=== PATIENT | male | born 1950 | race Caucasian/White ===

== ENCOUNTER 2018-03-29 19:52 | Emergency (ER) | payer MEDICARE ==
[2018-03-29] MEDS ORDERED: cefTRIAXone 1 GM Vial IM ONE (21:01)
[2018-03-29] MEDS ORDERED: cefTRIAXone 1 GM in Sodium Chloride 0.9% 50 ML IV ONE (21:05)
[2018-03-29] MEDS ORDERED: Sodium Chloride 0.9% 1,000 ML IV ONE (21:11)
[2018-03-29] MEDS ORDERED: Acetaminophen 500 MG Tab PO ONE (21:32)
--- NOTE | 2018-03-31 08:16 | CR ---
DATE OF SERVICE: 03/29/18 CLINICAL DATA: temp AP AND LATERAL CHEST: No priors. The patient has taken a very poor inspiration. The heart size is at the upper limits of normal. It is most likely accentuated by the projection and poor inspiration. There is calcification of the aortic arch. The pulmonary vasculature appears mildly prominent. It is probably accentuated by the poor inspiration. The lungs appear clear. No pneumothorax. No pleural effusions. No areas of consolidation. There is degenerative disc disease throughout the thoracic spine. [id number] [facility]
== END 2018-03-29 23:30 ==
LOC: LB.ED 19:52
DX: N39.0 Urinary tract infection, site not specified (principal); R41.82 Altered mental status, unspecified; E66.9 Obesity, unspecified
CPT/HCPCS: 36415; 71046; 80053; 81001; 83605; 84145; 85025; 87040; 87086; 87088; 87186; 93005; 96361; 96374; 99285-25; A9270-GY; J0696; J3370; J7040; J7050; J7060

== ENCOUNTER 2019-07-11 00:39 | Emergency (ER) | payer MEDICARE ==
[2019-07-11] MEDS ORDERED: Ciprofloxacin 500 MG Tab ONE (02:45)
--- NOTE | 2019-07-11 09:01 | ER ---
HISTORY OF PRESENT ILLNESS: A 68-year-old male who came to our emergency room by ambulance with complaints of just not feeling well. The patient states he did fall once this evening. He was evaluated earlier this evening in [facility]'s ER room and told he was fine and discharged home. An EKG had been done at that facility. No lab work was done. The patient is camping at a local campground. He states that he went back to the camper and ended up falling 1 time due to weakness. The patient states that he does not feel well, but he denies having any pain. The patient denies any chest pain or shortness of breath. He does not feel nauseated, and again he states he just does not feel well, but he cannot tell me how in any further detail. OBJECTIVE: GENERAL APPEARANCE: The patient is awake and alert. He is lying quietly on the table. VITAL SIGNS: Reviewed. Temperature is 100.4, pulse is 94, blood pressure is 164/84, and O2 sats are 97%. HEENT: Ears, TMs are dull, otherwise normal. Nares are patent. Oral mucous membranes are slightly dry. Tonsils are not enlarged or injected. Pharynx not inflamed. NECK: Supple. LUNGS: Clear. CARDIAC: Heart sounds distinct with a slight systolic murmur noted. ABDOMEN: Soft. SKIN: Warm and dry. LAB AND X-RAY: CBC shows a slightly elevated white count of 13,200, hemoglobin is 12.3. Comprehensive metabolic panel is unremarkable. UA does show urinary tract infection. ETOH is negative. DIAGNOSIS: Urinary tract infection. TREATMENT PLAN: The patient is taking Bactrim once a day I understand for a heart valve replacement that was done last spring. At this point, we will start the patient on Cipro 500 mg b.i.d., and we will order urine culture. I do want the patient to follow up Saturday for recheck, and we can review the urine culture results at that time. He is to otherwise rest, take his medications, and increase his liquid intake slightly. The patient is able to stand and walk around in the trauma room without any assistance and feels comfortable going home. CRS/MODL /[id number]
== END 2019-07-11 01:58 | disposition home or self-care (01) ==
LOC: LB.ED 00:39
DX: N39.0 Urinary tract infection, site not specified (principal)
CPT/HCPCS: 36415; 80053; 81001; 85025; 87086; 87088; 87186; 99283; 99284; A0425; A0429; A9270; G0480